=== PATIENT | male | born 1975 | race African-American/Black ===

== ENCOUNTER → 2017-08-24 | Outpatient (CLI) | payer BC, OTHER | LOC: ULTRA 08:49 | DX: E04.1 Nontoxic single thyroid nodule (principal); R22.1 Localized swelling, mass and lump, neck ==

== ENCOUNTER 2021-02-17 12:18 | Emergency (ER) | payer BC, OTHER ==
[~2021-02-17] VITALS: Ht 185.4 cm; Wt 68.0 kg
[2021-02-17 12:28] VITALS: BP 123/75
[2021-02-17] MEDS ORDERED: VICKS DAYQUIL236 ML PO (12:31)
[2021-02-17] MEDS ORDERED: TESSALON PERLE100 MG PO (12:46)
[2021-02-18] MEDS ORDERED: TESSALON PERLE100 MG PO (13:51)
[2021-02-18] MEDS ORDERED: MOBIC15 MG PO (13:51)
== END 2021-02-17 12:55 | disposition home or self-care (01) ==
LOC: ER 12:18
DX: U07.1 COVID-19 (principal); Z79.899 Other long term (current) drug therapy

== ENCOUNTER 2021-02-18 12:10 | Emergency (ER) | payer BC, OTHER ==
[~2021-02-18] VITALS: Ht 185.4 cm; Wt 68.0 kg
[~2021-02-18 12:10] MED LIST: TESSALON PERLE100 MG PO; VICKS DAYQUIL236 ML PO
[2021-02-18 12:11] VITALS: BP 118/79
[2021-02-18] MEDS ORDERED: TESSALON PERLE100 MG PO (13:51)
[2021-02-18] MEDS ORDERED: MOBIC15 MG PO (13:51)
== END 2021-02-18 14:00 | disposition home or self-care (01) ==
LOC: ER 12:10
DX: U07.1 COVID-19 (principal); Z79.899 Other long term (current) drug therapy

== ENCOUNTER 2021-02-21 12:29 | Emergency (ER) | payer BC, OTHER ==
[~2021-02-21] VITALS: Ht 185.4 cm; Wt 77.1 kg
[~2021-02-21 12:29] MED LIST changes: +MOBIC15 MG PO
[2021-02-21 12:32] VITALS: BP 122/79
== END 2021-02-21 13:07 | disposition home or self-care (01) ==
LOC: ER 12:29
DX: Z20.822 Contact with and (suspected) exposure to COVID-19 (principal); Z79.899 Other long term (current) drug therapy

== ENCOUNTER 2021-08-01 09:34 | Emergency (ER) | payer BC, OTHER ==
[~2021-08-01] VITALS: Ht 185.4 cm; Wt 77.1 kg
[2021-08-01 09:40] VITALS: BP 106/67
== END 2021-08-01 11:30 | disposition home or self-care (01) ==
LOC: ER 09:34
PROVIDERS: Student in an Organized Health Care Education/Training Program
DX: Z20.822 Contact with and (suspected) exposure to COVID-19 (principal)